=== PATIENT | male | born 1955 | race Hispanic/Latino ===

== ENCOUNTER 2016-10-19 16:54 | Emergency (ER) | payer BC ==
[2016-10-19] MEDS ORDERED: NORCO 5/325 ONE (20:38)
[2016-10-19] MEDS ORDERED: HYDROCORTISONE CR TP ONE (20:39)
[2016-10-19] MEDS ORDERED: NORCO 5/325 PO ONE (20:41)
--- NOTE | 2016-10-19 20:52 | Emergency Department Report ---
ED Lower Extremity HPI - General Chief Complaint: Extremity Problem,Nontraumatic Stated Complaint: LFT FOOT BLEEDING Time Seen by Provider: 10/19/16 20:28 Source: patient Mode of arrival: Stretcher Limitations: No Limitations - History of Present Illness Initial Comments: patient is a 60-year-old male visiting from [place] for evaluation of left foot bleeding. Patient reports 5 days ago he had a revision and hardware removal from his left ankle and foot in [facility], patient awoke to find his dressing was saturated with blood. Rectal is taking on the dressing since the surgery. Currently patient is not on any anticoagulants. Otherwise no other complaints - Related Data Home Medications Medication Instructions Recorded Confirmed Last Taken oxyCODONE /ACETAMINOPHEN [Percocet 1 tab PO Q6HR PRN 10/19/16 10/19/16 10/19/16 5/325] Allergies Allergy/AdvReac Type Severity Reaction Status Date / Time No Known Allergies Allergy Verified 10/19/16 20:41 ED Review of Systems ROS: Stated complaint: LFT FOOT BLEEDING Other details as noted in HPI Comment: All other systems reviewed and negative ED Past Medical Hx - Past Medical History Hx Psychiatric Treatment: Yes Additional medical history: Neuropathy - Surgical History Additional Surgical History: Left foot - Social History Smoking Status: Never Smoker Substance Use Type: None - Medications Home Medications: Home Medications Medication Instructions Recorded Confirmed Last Taken Type oxyCODONE /ACETAMINOPHEN [Percocet 1 tab PO Q6HR PRN 10/19/16 10/19/16 10/19/16 History 5/325] ED Physical Exam - General Limitations: No Limitations, Physical Limitation (L foot in posterior splint) General appearance: alert, in no apparent distress - Head Head exam: Present: atraumatic, normocephalic - Eye Eye exam: Present: normal appearance - ENT ENT exam: Present: mucous membranes moist - Neck Neck exam: Present: normal inspection - Respiratory Respiratory exam: Present: normal lung sounds bilaterally. Absent: respiratory distress - Cardiovascular Cardiovascular Exam: Present: regular rate, normal rhythm. Absent: systolic murmur, diastolic murmur, rubs, gallop - GI/Abdominal GI/Abdominal exam: Present: soft, normal bowel sounds - Rectal Rectal exam: Present: deferred - Extremities Exam Extremities exam: Present: normal capillary refill, other (Pt had a posterior splint covered with an jesús to the left lower extremity. Small amount of dried blood seen on the jesús bandage. Surgical dressing removed by me to reveal multiple surgical sites of the ankle and foot intact with sutures. No active bleeding noted. ). Absent: tenderness, calf tenderness - Expanded Lower Extremity Exam Left Hip exam: Present: normal inspection, full ROM Upper Leg exam: Present: normal inspection, full ROM Knee exam: Present: normal inspection, full ROM Lower Leg exam: Absent: tenderness, swelling Ankle exam: Present: tenderness, swelling Foot/Toe exam: Present: tenderness, swelling, ecchymosis Neuro vascular tendon exam: Present: no vascular compromise Gait: Positive: not tested/not observed - Back Exam Back exam: Present: normal inspection - Neurological Exam Neurological exam: Present: alert, oriented X3 - Psychiatric Psychiatric exam: Present: normal affect, normal mood - Skin Skin exam: Present: warm, dry, intact, normal color. Absent: rash ED Course Vital Signs 10/19/16 10/19/16 17:11 17:15 Temperature 98.1 F Pulse Rate 69 Respiratory 16 16 Rate Blood Pressure 158/88 O2 Sat by Pulse 100 100 Oximetry - Orthopedic Splinting/Casting Injury #1 Side: left Upper Extremity Immobilizer: posterior splint Lower Extremity Injury Location: lower leg Lower Extremity Immobilizer: posterior splint Other Orthopedic Equipment: other (wheelchair) Critical care attestation.: If time is entered above; I have spent that time in minutes in the direct care of this critically ill patient, excluding procedure time. ED Disposition Clinical Impression: Visit for wound check Disposition: DC/TX PSY HOSP/PSY UNIT Is pt being admited?: No Condition: Stable Instructions: Acute Wound Care (ED), Splint Care (ED) Referrals: PRIMARY CAREMD [Primary Care Provider] - 3-5 Days
[2016-10-20] MEDS ORDERED: NORCO 5/325 ONE (02:31)
[2016-10-20] MEDS ORDERED: NORCO 5/325 PO ONE (02:40)
[2016-10-20 06:43] VITALS: BP 125/69
== END 2016-10-20 09:01 ==
LOC: ED 16:54
DX: R23.3 Spontaneous ecchymoses (principal)
CPT/HCPCS: A6250